=== PATIENT | male | born 1995 | race Caucasian/White ===

== ENCOUNTER 2024-12-20 18:02 | Emergency (ER) | payer BC, OTHER ==
[~2024-12-20] VITALS: Ht 182.8 cm; Wt 95.3 kg
[2024-12-20] MEDS ORDERED: CEPHALEXIN500 M1 PO (18:29)
[2024-12-20] MEDS ORDERED: Tdap Vaccine 0.5 ML SYR (Adult Vaccine) IM ONE (18:30)
[2024-12-20] MEDS ORDERED: LIDOCAINE HCL/EPINEPHRINE 50 ML VIAL ONE (19:10)
== END 2024-12-20 19:50 | disposition home or self-care (01) ==
LOC: ED 18:02
DX: S91.311A Laceration without foreign body, right foot, initial encounter (principal); W01.0XXA Fall on same level from slipping, tripping and stumbling without subsequent striking against object, initial encounter; Y93.89 Activity, other specified; Y92.89 Other specified places as the place of occurrence of the external cause; Y99.8 Other external cause status